=== PATIENT | female | born 1980 | race Caucasian/White ===

== ENCOUNTER 2021-03-08 14:28 | Outpatient (CLI) | payer MEDICARE, MEDICAID, SELFPAY ==
--- NOTE | 2021-03-08 14:45 | XR_ITS ---
WS: [id number] Exam: XR lumbar spine f/e only [id number] Date/Time of Exam: 03/08/2021 2:47 PM Reason For Exam: POSTLAMINECTOMY No fracture or dislocation noted. No vertebral instability or subluxation noted during flexion or ext ension. Minimal spondylosis. 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 XR/XR lumbar spine f/e only [id number] IMPRESSION: 1. No fracture, subluxation or instability identified. Minimal degenerative tee nges.
== END 2021-03-08 14:29 | disposition home or self-care (01) ==
PROVIDERS: PCP Internal Medicine; Visit Provider Nurse Practitioner
DX: M96.1 Postlaminectomy syndrome, not elsewhere classified (principal); M43.17 Spondylolisthesis, lumbosacral region
CPT/HCPCS: 72120

== ENCOUNTER 2021-04-06 20:00 | Outpatient (CLI) | payer MEDICARE, MEDICAID, SELFPAY | END 2021-04-06 20:01 | disposition home or self-care (01) | LOC: SLEEP 04-07 09:05 | PROVIDERS: PCP Internal Medicine; Visit Provider Anesthesiology Pain Medicine | DX: G47.10 Hypersomnia, unspecified (principal); R06.83 Snoring; R53.83 Other fatigue; G47.33 Obstructive sleep apnea (adult) (pediatric) | CPT/HCPCS: 95810 ==